=== PATIENT | male | born 1980 | race Caucasian/White ===

== ENCOUNTER 2017-08-12 11:05 | Emergency (ER) | payer OTHER ==
[2017-08-12 11:18] VITALS: BP 136/87; PULSE 70; RESP 16; TEMP 98.3; O2SAT 99
[2017-08-12] MEDS ORDERED: Tdap Vaccine 0.5 ml Vial (10-64 yrs) IM ONE ×2 (12:20→12:31)
--- NOTE | 2017-08-12 12:37 | C.PDOC ---
History Of Present Illness 37-year-old male, presents to ED with complaints of trauma. Pt states while at the gym, he stood up really fast, and hit top of his head on metal equipment, sustaining a laceration to occipital scalp. Denies any LOC, nausea/vomiting, visual changes, numbness/weakness or any other associated symptoms. No other complaints at this time. Chief Complaint (Nursing): Abnormal Skin Integrity History Per: Patient History/Exam Limitations: no limitations Current Symptoms Are (Timing): Still Present Past Medical History Reviewed: Historical Data, Nursing Documentation, Vital Signs Vital Signs: Last Vital Signs Temp 98.3 F 08/12/17 11:14 Pulse 70 08/12/17 11:14 Resp 16 08/12/17 11:14 BP 136/87 08/12/17 11:14 Pulse Ox 99 08/12/17 19:28 Family History: States: No Known Family Hx - Social History Hx Alcohol Use: Yes Hx Substance Use: No - Immunization History Hx Tetanus Toxoid Vaccination: No Hx Influenza Vaccination: No Hx Pneumococcal Vaccination: No Review Of Systems Constitutional: Negative for: Fever Cardiovascular: Negative for: Chest Pain, Palpitations Respiratory: Negative for: Shortness of Breath Gastrointestinal: Negative for: Nausea, Vomiting Skin: Negative for: Rash Neurological: Positive for: Headache. Negative for: Weakness, Numbness, Dizziness Physical Exam - Physical Exam Appears: Non-toxic, No Acute Distress Skin: Normal Color, Warm, Dry, No Rash Head: Other (1.5 CM LINEAR LACeration TO THE left occipital scalp) Eye(s): bilateral: Normal Inspection, PERRL, EOMI Ear(s): Bilateral: Normal Nose: Normal Oral Mucosa: Moist Lips: Normal Appearing Neck: Normal ROM, No Step Off Deformity Cardiovascular: Rhythm Regular, No Murmur Respiratory: Normal Breath Sounds, No Accessory Muscle Use Extremity: Normal ROM, No Deformity, No Swelling Neurological/Psych: Oriented x3, Normal Speech, Normal Cranial Nerves, Normal Motor, Normal Sensation Gait: Steady ED Course And Treatment O2 Sat by Pulse Oximetry: 99 Laceration - Laceration Repair occipital scalp Wound Length (In cm): 1.5 Description Of Wound: Linear Wound Cleansed With: Betadine, Sterile Saline Wound Examination: Irrigated With Saline, No FB With Wound Exploration Wound Closure: Haiku (three) Wound Complexity: Simple Disposition - Disposition Disposition: HOME/ ROUTINE Disposition Time: 12:35 Condition: GOOD Additional Instructions: Keep the wound dry for 2 days. Then wash head like normal. Haiku to be removed within 10-12 days. Instructions: Laceration Repair With Haiku (DC), Minor Head Injury (DC) Forms: [employer] ([place]) - Clinical Impression Clinical Impression: Scalp laceration, Head injury - Scribe Statement The provider has reviewed the documentation as recorded by the Scribe (Lissette Oliveira) All medical record entries made by the Scribe were at my direction and personally dictated by me. I have reviewed the chart and agree that the record accurately reflects my personal performance of the history, physical exam, medical decision making, and the department course for this patient. I have also personally directed, reviewed, and agree with the discharge instructions and disposition.
== END 2017-08-12 12:44 | disposition home or self-care (01) ==
LOC: C.ER 11:05
DX: S01.01XA Laceration without foreign body of scalp, initial encounter (principal); W22.09XA Striking against other stationary object, initial encounter; Y92.39 Other specified sports and athletic area as the place of occurrence of the external cause; Z23 Encounter for immunization

== ENCOUNTER 2017-08-19 10:46 | Emergency (ER) | payer OTHER ==
[2017-08-19 10:52] VITALS: BP 124/78; PULSE 80; RESP 18; TEMP 98.5; O2SAT 98
--- NOTE | 2017-08-19 15:56 | C.PDOC ---
History Of Present Illness 37 year old male presents to the emergency department for removal of nora which he had placed eight days ago. He denies fever or drainage from wound. Chief Complaint (Nursing): Suture/Staple Removal History Per: Patient History/Exam Limitations: no limitations Onset/Duration Of Symptoms: Days Ago (8) Current Symptoms Are (Timing): Still Present Location Of Injury: Posterior: Head Quality Of Symptoms: denies: Draining Past Medical History Reviewed: Historical Data, Nursing Documentation, Vital Signs Vital Signs: Last Vital Signs Temp 98.5 F 08/19/17 10:50 Pulse 80 08/19/17 10:50 Resp 18 08/19/17 10:50 BP 124/78 08/19/17 10:50 Pulse Ox 98 08/19/17 15:59 - Medical History PMH: No Chronic Diseases Family History: States: No Known Family Hx - Social History Hx Alcohol Use: Yes Hx Substance Use: No - Immunization History Hx Tetanus Toxoid Vaccination: No Hx Influenza Vaccination: No Hx Pneumococcal Vaccination: No Review Of Systems Constitutional: Negative for: Fever Skin: Negative for: Other (drainage from wound) Physical Exam - Physical Exam Appears: Non-toxic, No Acute Distress Skin: Warm, Dry Head: Other (3 nora present in occipital region) Eye(s): bilateral: Normal Inspection Nose: Normal Neck: Normal, Supple Chest: Symmetrical Cardiovascular: Rhythm Regular Respiratory: Normal Breath Sounds Neurological/Psych: Oriented x3, Normal Speech, Normal Cognition ED Course And Treatment O2 Sat by Pulse Oximetry: 98 (RA) Pulse Ox Interpretation: Normal Disposition - Disposition Referrals: [facility] Kobi Heredia, [Non-Staff] - Disposition: HOME/ ROUTINE Disposition Time: 11:10 Condition: GOOD Additional Instructions: ANDREW MATOS, thank you for letting us take care of you today. Your provider was Riley Hammonds DO and you were treated for SUTURE REMOVAL. The emergency medical care you received today was directed at your acute symptoms. If you were prescribed any medication, please fill it and take as directed. It may take several days for your symptoms to resolve. Return to the Emergency Department if your symptoms worsen, do not improve, or if you have any other problems. Please contact your doctor or call one of the physicians/clinics you have been referred to that are listed on the Patient Visit Information form that is included in your discharge packet. Bring any paperwork you were given at discharge with you along with any medications you are taking to your follow up visit. Our treatment cannot replace ongoing medical care by a primary care provider outside of the emergency department. [facility] of your care today. Follow up with the emergency room or your primary care doctor if you noticed any redness around the area of the wound. Instructions: Staple Removal Forms: [employer] (Greek) - Clinical Impression Clinical Impression: Removal of staple - Scribe Statement The provider has reviewed the documentation as recorded by the Scribe (Jose Darby) Provider Attestation: All medical record entries made by the Scribe were at my direction and personally dictated by me. I have reviewed the chart and agree that the record accurately reflects my personal performance of the history, physical exam, medical decision making, and the department course for this patient. I have also personally directed, reviewed, and agree with the discharge instructions and disposition.
== END 2017-08-19 11:26 | disposition home or self-care (01) ==
LOC: C.ER 10:46
DX: Z48.02 Encounter for removal of sutures (principal)